=== PATIENT | female | born 1985 | race Caucasian/White ===

== ENCOUNTER → 2021-05-15 11:24 | Outpatient (BNVA) | payer OTHER, SELFPAY | PROVIDERS: PCP Internal Medicine; Visit Provider Nurse Practitioner Family | DX: G43.709 Chronic migraine without aura, not intractable, without status migrainosus (principal); G93.0 Cerebral cysts; H57.13 Ocular pain, bilateral | CPT/HCPCS: 99212 ==

== ENCOUNTER → 2021-07-26 14:27 | Outpatient (BNVA) | payer OTHER, SELFPAY | PROVIDERS: PCP Internal Medicine; Visit Provider Nurse Practitioner Family | DX: G47.19 Other hypersomnia (principal); R06.83 Snoring; H57.13 Ocular pain, bilateral; G93.0 Cerebral cysts; G43.709 Chronic migraine without aura, not intractable, without status migrainosus; R63.5 Abnormal weight gain; R53.83 Other fatigue; I10 Essential (primary) hypertension; M54.2 Cervicalgia; Z79.899 Other long term (current) drug therapy | CPT/HCPCS: 99212 ==

== ENCOUNTER 2021-08-20 11:39 | Emergency (ER) | payer OTHER, SELFPAY ==
--- NOTE | ~2021-08-20 | CT_ITS ---
EXAMINATION: CT ABDOMEN AND PELVIS WITH CONTRAST CLINICAL INFORMATION: Right upper and right lower quadrant pain COMPARISON: Previous CT of the abdomen and pelvis and pelvic ultrasound January 2020 TECHNIQUE: Multidetector volumetric images were obtained from the superior aspect of the liver through the pubic symphysis following administration 85 mL of Omnipaque 350 intravenous contrast. Sagittal and coronal reformatted images were obtained on the technologist's workstation. Oral contrast: Yes This CT examination was performed using dose optimization techniques as appropriate, variously including the following: *Automated exposure control *Adjustment of mA and/or kV according to patient size (this includes techniques or standardized protocols for targeted exams where dose is matched to indication/reason for exam; i.e. extremities or head) *Use of iterative reconstruction technique DLP: 868 mGy-cm FINDINGS: LUNG BASES: The visualized lung bases are unremarkable. LIVER, GALLBLADDER, AND BILIARY TREE: The liver is normal in size, shape, and attenuation. No focal hepatic lesion or biliary ductal dilatation is present. The gallbladder is unremarkable with no evidence of radiopaque gallstones, gallbladder wall thickening, or obvious pericholecystic inflammatory changes. PANCREAS: Unremarkable. SPLEEN: Unremarkable. ADRENAL GLANDS: Unremarkable. KIDNEYS AND URETERS: There are small bilateral nonobstructing renal stones. No hydronephrosis, ureteral dilatation or ureteral stone is seen. BLADDER: Unremarkable. GASTROINTESTINAL TRACT: The small and large bowel are unremarkable. The appendix is unremarkable. ABDOMINAL WALL: Small umbilical hernia containing fat. LYMPH NODES: Normal. VASCULAR: Unremarkable. PELVIC VISCERA: Unremarkable. OSSEOUS STRUCTURES: Unremarkable. CT/CT abdomen pelvis w con IMPRESSION: Small bilateral renal stones. No hydronephrosis, ureteral dilatation or ureteral stone seen. Fleischner guidelines were followed.
[2021-08-20 11:58] VITALS: BP 184/92; PULSE 72; RESP 18; TEMP 37.2; O2SAT 97; BMI 43.0
[2021-08-20 12:57] LABS: MANUAL DIFF FLAG NO
[2021-08-20 13:00] LABS: Basophils Percent Auto 0.1 % (0-2); Eosinophils Percent Auto 0.1 % (0-4); Hematocrit 42.6 % (37.0-47.0); Hemoglobin 13.9 g/dl (12.0-16.0); Imm Gran Abs Auto 0.27 X10*3/uL (0.00-0.03); Imm Gran Pct Auto 1.6 % (0.0-0.4); Lymphocytes Absolute Auto 3.8 X10*3/uL (1.2-4.9); Lymphocytes Percent Auto 22.8 % (20-40); Mean Corpuscular HGB Conc 32.6 g/dl (31.0-35.0); Mean Corpuscular Hemoglobin 29.3 pg (27.0-33.0); Mean Corpuscular Volume 89.7 fL (80.0-98.0); Mean Platelet Volume 9.3 fL (9.4-12.3); Monocytes Absolute Auto 1.4 X10*3/uL (0.1-1.2); Monocytes Percent Auto 8.3 % (2-11); Neutrophils Absolute Auto 11.1 x10*3/uL (2.0-8.3); Neutrophils Percent Auto 67.1 % (45-73); Platelet Count 381 X10*3/uL (160-400); Red Blood Count 4.75 X10*6/uL (4.20-5.50); Red Cell Distribution Width 13.5 % (11.0-16.0); White Blood Count 16.5 X10*3/uL (4.8-10.8)
[2021-08-20 13:21] LABS: Alanine Aminotransferase 25 U/L (0-31); Albumin Level 4.4 g/dL (3.5-5.0); Alkaline Phosphatase 65 U/L (39-117); Anion Gap 15 (12-20); Aspartate Amino Transferase 16 U/L (5-31); Bilirubin Total 0.4 mg/dL (0.0-1.0); Blood Urea Nitrogen 17 mg/dL (9-16); Calcium 9.7 mg/dL (8.4-10.2); Carbon Dioxide 25 mmol/L (22-29); Chloride 100 mmol/L (96-108); Creatinine Clr Calc Pharmacy 109.3; Estimated Glomerular Filt Rate > 60; Glucose Random 85 mg/dL (60-115); Potassium 4.8 mmol/L (3.3-5.1); Sodium 135 mmol/L (135-145); Total Protein 7.4 g/dL (6.5-8.0)
[2021-08-20 13:32] LABS: Appearance Urine CLEAR; Color Urine YELLOW; Glucose Urine UA NEG (NEG); Leukocyte Esterase Urine NEG (NEG); Nitrite Urine NEG (NEG); PH 6.5 (5.0-8.0); Urine Blood NEG (NEG); Urine Ketones NEG (NEG); Urine Protein NEG (NEG-TRACE)
[2021-08-20 13:36] LABS: UPreg QC Valid YES; Urine Pregnancy NEGATIVE (NEGATIVE)
--- NOTE | 2021-08-20 14:15 | ED.ABDPAIN ---
HPI - Abdominal Pain General Chief Complaint: Abdominal Pain Stated Complaint: Abd pain/back pain Time Seen by Provider: 08/20/21 14:13 Source: patient Mode of arrival: ambulatory Limitations: no limitations History of Present Illness MD elicited complaint: abdominal pain Pertinent past history: none Onset (ago): week(s) (3) Pain Consistency: intermittent Location: epigastric Severity: severe Quality: stabbing Radiation: RLQ and back Migration to: no migration Exacerbating factors: eating Relieving factors: nothing Associated symptoms: nausea Related Data Home Medications Medication Instructions Recorded Confirmed loratadine 10 mg tablet (Claritin) 10 mg PO DAILY 05/15/21 08/09/21 magnesium oxide 400 mg (241.3 mg 400 mg PO DAILY 07/26/21 08/09/21 magnesium) tablet riboflavin (vitamin B2) 100 mg 200 mg PO BID 07/26/21 08/09/21 tablet (Vitamin B-2) Previous Rx's Medication Instructions Recorded multivitamin 1 tab PO DAILY #1 tab 05/15/21 rizatriptan 10 mg tablet 10 mg PO Q2H PRN 30 Days #14 tab 05/15/21 topiramate 25 mg sprinkle capsule 50 mg PO BEDTIME 30 Days #60 cap 05/15/21 propranolol 60 mg capsule,24 60 mg PO BEDTIME 30 Days #30 cap 07/26/21 hr,extended release omeprazole 20 mg capsule,delayed 20 mg PO BID #30 cap 08/20/21 release ondansetron 4 mg disintegrating 4 mg PO Q8H PRN #20 tab 08/20/21 tablet Allergies Allergy/AdvReac Type Severity Reaction Status Date / Time No Known Allergies* Allergy no known Uncoded 08/09/21 14:08 allergies Review of Systems Review of Systems Constitutional : No Weight loss, No Fever, No Chills ENT/Mouth : No sore throat, No Rhinorrhea Eyes: No Swelling, No Redness Cardiovascular : No Chest Pain, No SOB, NoEdema Respiratory : No Cough, No Sputum, No Wheezing Gastrointestinal : Positive Nausea, Positive Vomiting, no Diarrhea, positive abdominal Pain, No Hematochezia, No Melena Genitourinary : No Dysuria, No Urinary Frequency, No Hematuria, No Urgency Musculoskeletal : No joint pain, No Myalgias, No Joint Swelling Skin : No Skin Lesions, No rash Neuro : No Weakness, No Numbness, No Dizziness, No Headache Psych : No Anxiety/Panic, No Depression Heme/Lymph: No Bruising, No Lymphadenopathy Endocrine : No Polyuria, No Polydipsia All other systems reviewed and are negative. [facility] Past Medical History Attestation statement: The following information was validated with the patient. Medical History (Updated 08/20/21 @ 16:21 by Latoya Brannon DO) Arachnoid cyst HTN (hypertension) Leukocytosis Migraine Surgical History Hx of tonsillectomy Family History Family History Mother Ovarian cancer Thyroid cancer Breast cancer Diabetes Social History Social History Household Members: Spouse Alcohol intake: current Alcohol intake frequency: holidays/special occasions only Patient Tobacco Use Status: Never used Tobacco Use of substances other than those prescribed or required for medical reasons: No Advance Directives: No Advance Directives Information Provided: No Patient : No Current occupational status: employed Physical Exam ED Vital Signs: Vital Signs - 24 hr 08/20/21 11:58 08/20/21 15:17 Temperature 98.9 F 98.7 F Pulse Rate 72 65 Respiratory Rate 18 19 Blood Pressure 184/92 H 174/91 H Pulse Oximetry 97 100 BMI result Body Mass Index 43.0 Appearance: Alert. Oriented X3. No acute distress. Eyes: Pupils equal, round and reactive to light. ENT: Pharynx normal. Neck: Normal inspection. Neck supple. CVS: Normal heart rate and rhythm. Pulses normal. Respiratory: No respiratory distress. Breath sounds normal. Abdomen: Soft and moderate ttp in RUQ, mild ttp in RLQ, + Villalta's sign Skin: Skin warm and dry. Normal skin color. Normal skin turgor. Extremities: No lower extremity edema. No calf ttp Neuro: Oriented X 3. No motor deficit. No sensory deficit. Course Course Course Narrative: hx of leukocytosis in the past, kidneys/liver/pancreas normal CT scan no signs of acute infection with 3 weeks of symptoms possible PUD has mildly elevated BP hx of HTN in the past can follow up with her PCP MDM - Abdominal Pain MDM Narrative Medical decision making narrative: 36 yo female with PMH of migraines, leukocytosis here with c/o RUQ and RLQ pain x 3 weeks radiating to the back with n/v - at this time worse with food. Denies daily NSAID or ETOH use. Will obtain labs, CT scan to evaluate GB, R kidney/appendix. IVF, IV medications for pain control. Dispo per results and findings. Lab Data Result diagrams: 08/20/21 12:53 08/20/21 12:53 Labs: Lab Results 08/20/21 08/20/21 08/20/21 Range/Units 12:53 12:53 13:18 WBC 16.5 H (4.8-10.8) X10*3/uL RBC 4.75 (4.20-5.50) X10*6/uL Hgb 13.9 (12.0-16.0) g/dl Hct 42.6 (37.0-47.0) % MCV 89.7 (80.0-98.0) fL MCH 29.3 (27.0-33.0) pg MCHC 32.6 (31.0-35.0) g/dl RDW 13.5 (11.0-16.0) % Plt Count 381 (160-400) X10*3/uL MPV 9.3 L (9.4-12.3) fL Immature Gran % (Auto) 1.6 H (0.0-0.4) % Neut % (Auto) 67.1 (45-73) % Lymph % (Auto) 22.8 (20-40) % [place] % (Auto) 8.3 (2-11) % Eos % (Auto) 0.1 (0-4) % Baso % (Auto) 0.1 (0-2) % Lymph # (Auto) 3.8 (1.2-4.9) X10*3/uL Johnston # (Auto) 1.4 H (0.1-1.2) X10*3/uL Eos # (Auto) 0.0 (0.0-0.4) X10*3/uL Baso # (Auto) 0.0 (0.0-0.2) X10*3/uL Abs Immat Gran (auto) 0.27 H (0.00-0.03) X10*3/uL Absolute Neuts (auto) 11.1 H (2.0-8.3) x10*3/uL Absolute Nucleated RBC 0.000 (0.0-0.012) X10*3/uL Nucleated RBC % (auto) 0.0 (0.0-0.2) /100WBC Sodium 135 (135-145) mmol/L Potassium 4.8 (3.3-5.1) mmol/L Chloride 100 (96-108) mmol/L Carbon Dioxide 25 (22-29) mmol/L Anion Gap 15 (12-20) BUN 17 H (9-16) mg/dL Creatinine 0.74 (0.5-1.4) mg/dL Estim Creat Clear Calc 109.3 Estimated GFR > 60 Random Glucose 85 (60-115) mg/dL Lactic Acid (0.5-2.0) mmol/L Calcium 9.7 (8.4-10.2) mg/dL Magnesium 2.1 (1.6-2.6) mg/dL Total Bilirubin 0.4 (0.0-1.0) mg/dL AST 16 (5-31) U/L ALT 25 (0-31) U/L Alkaline Phosphatase 65 (39-117) U/L Total Protein 7.4 (6.5-8.0) g/dL Albumin 4.4 (3.5-5.0) g/dL Lipase 18 (8-78) U/L Urine Color YELLOW Urine Appearance CLEAR Urine pH 6.5 (5.0-8.0) Ur Specific [place] 1.010 (1.005-1.025) Urine Protein NEG (NEG-TRACE) MG/DL Urine Glucose (UA) NEG (NEG) MG/DL Urine Ketones NEG (NEG) MG/DL Urine Blood NEG (NEG) Urine Nitrite NEG (NEG) Ur Leukocyte Esterase NEG (NEG) Urine Test (NEGATIVE) 08/20/21 08/20/21 Range/Units 13:18 14:45 WBC (4.8-10.8) X10*3/uL RBC (4.20-5.50) X10*6/uL Hgb (12.0-16.0) g/dl Hct (37.0-47.0) % MCV (80.0-98.0) fL MCH (27.0-33.0) pg MCHC (31.0-35.0) g/dl RDW (11.0-16.0) % Plt Count (160-400) X10*3/uL MPV (9.4-12.3) fL Immature Gran % (Auto) (0.0-0.4) % Neut % (Auto) (45-73) % Lymph % (Auto) (20-40) % Johnston % (Auto) (2-11) % Eos % (Auto) (0-4) % Baso % (Auto) (0-2) % Lymph # (Auto) (1.2-4.9) X10*3/uL [place] # (Auto) (0.1-1.2) X10*3/uL Eos # (Auto) (0.0-0.4) X10*3/uL Baso # (Auto) (0.0-0.2) X10*3/uL Abs Immat Gran (auto) (0.00-0.03) X10*3/uL Absolute Neuts (auto) (2.0-8.3) x10*3/uL Absolute Nucleated RBC (0.0-0.012) X10*3/uL Nucleated RBC % (auto) (0.0-0.2) /100WBC Sodium (135-145) mmol/L Potassium (3.3-5.1) mmol/L Chloride (96-108) mmol/L Carbon Dioxide (22-29) mmol/L Anion Gap (12-20) BUN (9-16) mg/dL Creatinine (0.5-1.4) mg/dL Estim Creat Clear Calc Estimated GFR Random Glucose (60-115) mg/dL Lactic Acid 1.8 (0.5-2.0) mmol/L Calcium (8.4-10.2) mg/dL Magnesium (1.6-2.6) mg/dL Total Bilirubin (0.0-1.0) mg/dL AST (5-31) U/L ALT (0-31) U/L Alkaline Phosphatase (39-117) U/L Total Protein (6.5-8.0) g/dL Albumin (3.5-5.0) g/dL Lipase (8-78) U/L Urine Color Urine Appearance Urine pH (5.0-8.0) Ur Specific [place] (1.005-1.025) Urine Protein (NEG-TRACE) MG/DL Urine Glucose (UA) (NEG) MG/DL Urine Ketones (NEG) MG/DL Urine Blood (NEG) Urine Nitrite (NEG) Ur Leukocyte Esterase (NEG) Urine Test NEGATIVE (NEGATIVE) Discharge Plan Discharge Clinical Impression: Abdominal pain Qualifiers: Abdominal location: right upper quadrant Qualified Code(s): R10.11 - Right upper quadrant pain Leukocytosis Qualifiers: Leukocytosis type: unspecified Qualified Code(s): D72.829 - Elevated white blood cell count, unspecified HTN (hypertension) Qualifiers: Hypertension type: unspecified Qualified Code(s): I10 - Essential (primary) hypertension Patient Disposition: Home, Self-Care Instructions: Diet for Stomach Ulcers and Gastritis (ED), Abdominal Pain (ED), Hypertension (ED) Additional Instructions: return to ED for any worsening symptoms or concerns. YOUR DOCTOR NEEDS TO RECHECK YOUR BLOOD PRESSURE THIS WEEK WELL. LUNG BASES: The visualized lung bases are unremarkable.? LIVER, GALLBLADDER, AND BILIARY TREE: The liver is normal in size, shape, and attenuation. No focal hepatic lesion or biliary ductal dilatation is present. The gallbladder is unremarkable with no evidence of radiopaque gallstones, gallbladder wall thickening, or obvious pericholecystic inflammatory changes.? PANCREAS: Unremarkable.? SPLEEN: Unremarkable.? ADRENAL GLANDS: Unremarkable.? KIDNEYS AND URETERS: There are small bilateral nonobstructing renal stones. No hydronephrosis, ureteral dilatation or ureteral stone is seen. INCIDENTAL NOT CAUSE OF TODAY'S PAIN BLADDER: Unremarkable.? GASTROINTESTINAL TRACT: The small and large bowel are unremarkable. The appendix is unremarkable.? ABDOMINAL WALL: Small umbilical hernia containing fat. INCIDENTAL NOT CAUSE OF TODAY'S PAIN LYMPH NODES: Normal. VASCULAR: Unremarkable. PELVIC VISCERA: Unremarkable.? OSSEOUS STRUCTURES: Unremarkable.? CT/CT abdomen pelvis w con IMPRESSION: Small bilateral renal stones. No hydronephrosis, ureteral dilatation or ureteral stone seen. ? Fleischner guidelines were followed. Prescriptions: New omeprazole 20 mg capsule,delayed release(DR/EC) 20 mg PO BID Qty: 30 0RF Rx Instructions: twice a day for 10 days then daily for 7 days ondansetron 4 mg tablet,disintegrating 4 mg PO Q8H PRN (Reason: nausea and vomiting) Qty: 20 0RF No Action loratadine [Claritin] 10 mg tablet 10 mg PO DAILY 0RF multivitamin Tablet 1 tab PO DAILY Qty: 1 0RF topiramate 25 mg capsule, sprinkle 50 mg PO BEDTIME 30 Days Qty: 60 3RF rizatriptan 10 mg tablet 10 mg PO Q2H PRN (Reason: migraine headache) 30 Days Qty: 14 3RF Rx Instructions: 1 tab at onset of migraine, may repeat in 2 hours (max 2 tabs per day/4 tabs per week) riboflavin (vitamin B2) [Vitamin B-2] 100 mg tablet 200 mg PO BID 0RF magnesium oxide 400 mg (241.3 mg magnesium) tablet 400 mg PO DAILY 0RF propranolol 60 mg capsule,extended release 24 hr 60 mg PO BEDTIME 30 Days Qty: 30 3RF Referrals: Luis Miguel Mullins DO, MD [Primary Care Provider] - (possible need for ultrasound or h. pylori testing) Stand Alone Forms: Work/School Release
[2021-08-20 14:41] LABS: Lipase 18 U/L (8-78); Magnesium 2.1 mg/dL (1.6-2.6)
[2021-08-20 15:00] LABS: Lactic Acid 1.8 mmol/L (0.5-2.0)
[2021-08-20] MEDS: iohexoL 350 MG/ML 100 ML INFUS..BTL IV (15:01)
[2021-08-20 15:17] VITALS: BP 174/91; PULSE 65; RESP 19; TEMP 37.1; O2SAT 100
[2021-08-20] MEDS: 0.9 % Sodium Chloride 1,000 ML 999 ML IV (15:23)
[2021-08-20] MEDS: Ketorolac Tromethamine 15 MG/ML VIAL IVPUSH (15:25)
[2021-08-20] MEDS: ondansetron HCL 4 MG/2 ML VIAL IVPUSH (15:25)
[2021-08-20] MEDS: Famotidine/PF 20 MG/2 ML VIAL IVPUSH (15:26)
[2021-08-20 16:27] VITALS: BP 148/82
[2021-08-20 16:51] VITALS: BP 148/82; PULSE 59; RESP 18; O2SAT 99
[2021-08-20] MEDS: Lidocaine HCl Viscous 2 % 15 ML SOLUTION MUCOUS MEM (16:52)
[2021-08-20] MEDS: Magnesium Hydrox/Alum Hydrox 30 ML ORAL.SUSP 15 ML PO (16:53)
== END 2021-08-20 17:05 | disposition home or self-care (01) ==
PROVIDERS: Emergency Provider Emergency Medicine; PCP Internal Medicine
DX: R10.11 Right upper quadrant pain (principal); R10.31 Right lower quadrant pain; D72.829 Elevated white blood cell count, unspecified; I10 Essential (primary) hypertension; M54.50 Low back pain, unspecified; Z79.899 Other long term (current) drug therapy
CPT/HCPCS: 36415; 74177; 80053; 81003; 81025; 83605; 83690; 83735; 85025; 87040; 96361; 96374; 96375; 99284; J1885; J2405; Q9967

== ENCOUNTER 2021-12-30 08:50 | Outpatient (REF) | payer OTHER, SELFPAY ==
[2021-12-30 09:24] LABS: COVID-19 Test Negative (Negative)
== END 2021-12-30 08:51 | disposition home or self-care (01) ==
LOC: HO.LAB 08:50
PROVIDERS: Visit Provider Internal Medicine
DX: Z20.822 Contact with and (suspected) exposure to COVID-19 (principal)
CPT/HCPCS: 87635; C9803

== ENCOUNTER 2022-08-07 12:27 | Outpatient (REF) | payer OTHER, SELFPAY ==
--- NOTE | ~2022-08-07 | XR_ITS ---
EXAMINATION: XR FOOT, RIGHT CLINICAL INFORMATION: Trauma. Fall down stairs. Rule out fracture. COMPARISON: None available. TECHNIQUE: AP, lateral, and oblique views of the right foot. FINDINGS: The bones and soft tissues are normal. No fracture. Alignment is anatomic. Joint spaces are maintained. XR/XR foot RT min 3V IMPRESSION: Normal right foot.
== END 2022-08-07 12:28 | disposition home or self-care (01) ==
LOC: HO.XRAY 12:27
PROVIDERS: PCP Internal Medicine; Visit Provider Hospitalist
DX: M79.671 Pain in right foot (principal)
CPT/HCPCS: 73630

== ENCOUNTER 2023-06-29 08:54 | Outpatient (AMB) | payer OTHER, SELFPAY ==
--- NOTE | 2023-06-29 08:53 | MHC.OFFWIV ---
Intake Vital Signs 06/29/23 08:58 Height 5 ft Weight 225 lb BMI 43.9 BP 148/76 H Blood Pressure Location Lt brachial Position Left Lateral Pulse 96 Pulse Source Pulse Oximeter Temp 99 F Temp Source Temporal Artery Scan Pulse Oximetry (%) 98 Oxygen Delivery Method Room Air Intake Visit Reasons: sore throat Patient Tobacco Use Status: Never used Tobacco Allergies No Known Allergies* Allergy (Unknown, Uncoded 06/29/23 08:56) no known allergies Medication List - Last Reconciled 06/29/23 by TRAV Mari-BC loratadine (Claritin) 10 mg PO DAILY magnesium oxide 400 mg PO DAILY multivitamin 1 tab PO DAILY rizatriptan 10 mg PO Q2H PRN 30 days HPI HPI Comments History of Present Illness Details A few days ago throat started to feel scratchy. + ear pressure and nasal congestion. Feeling tired. + painful swallowing. Feels week. + dry cough. + PND. Home COVID test negative this AM. Voice is hoarse. Used dayquil w/o relief. Not UTD on flu vaccine. [facility] Medical History (Updated 06/29/23 @ 09:10 by TRAV Mari-DEVON) HTN (hypertension) Migraine Leukocytosis Arachnoid cyst Surgical History Hx of tonsillectomy Family History Mother Ovarian cancer Thyroid cancer Breast cancer Diabetes Social History Household Members: Spouse Alcohol intake: current Alcohol intake frequency: holidays/special occasions only Patient Tobacco Use Status: Never used Tobacco Current occupational status: employed Review of Systems Const All systems reviewed & are unremarkable except as noted in HPI and below Physical Exam Vital Signs: Last Vital Signs Temp 99 F 06/29/23 08:58 Pulse 96 06/29/23 08:58 BP 148/76 H 06/29/23 08:58 Pulse Ox 98 06/29/23 08:58 Oxygen Delivery Method Room Air 06/29/23 08:58 BMI result Body Mass Index 43.9 Const Other: Awake alert NAD, mildly ill-appearing Sclera and conjunctiva clear bilat Nares with clear discharge bilat, turbinates erythematous, reports a pressure with sinus palpation frontal and maxillary TM intact and clear bilat MMM, pharynx WNL RRR LS CTAB, dry hacking cough noted during exam Assessment & Plan Assessment & Plan (1) Flu-like symptoms: Code(s): R68.89 - Other general symptoms and signs Plan: Viral swab negative. Therefore decision was made to send an antibiotic. Augmentin sent to pharmacy. Advised to take as directed with food. (2) HTN (hypertension): Comment: BP elevated today on exam. Patient reports this has been a problem in the past. Advised that she follow up with her primary care about this. It certainly could be a reactive blood pressure given that she took DayQuil prior to arrival. However her chart does indicate a history of hypertension. Code(s): I10 - Essential (primary) hypertension Plan This note is constructed using voice recognition software. While every effort has been made to ensure accuracy in obstetrician and gynaecologist, still errors may have been included Sometimes, these errors may affect the content or meaning of the given sentence . Total time spent caring for the patient today was 30 minutes. This includes time spent before the visit reviewing the chart, time spent during the visit, and time spent after the visit on documentation Orders: Orders SARS-CoV2/FLU/RSV Today R68.89 - Other general symptoms and signs Medications: New benzonatate 100 mg PO TID 10 days PRN 30 caps 1RF cough amoxicillin-pot clavulanate 500-125 mg 1 tab PO BID 14 tabs 0RF 7 days Coding Level of Care Code Est Pt Level 4 (07247) Diagnoses Flu-like symptoms R68.89 HTN (hypertension) I10
[2023-06-29 08:58] VITALS: BP 148/76; PULSE 96; TEMP 37.2; O2SAT 98; BMI 43.9
== END 2023-06-29 09:09 | disposition home or self-care (01) ==
LOC: HO.HMGWIW 08:54
PROVIDERS: PCP Internal Medicine
DX: R68.89 Other general symptoms and signs (principal); I10 Essential (primary) hypertension
CPT/HCPCS: 99214

== ENCOUNTER 2023-06-29 14:27 | Outpatient (REF) | payer OTHER, SELFPAY ==
[2023-06-29 16:05] LABS: Influenza A PCR NEGATIVE (Negative); Influenza B PCR NEGATIVE (Negative); Resp Syncy Virus RNA Qual PCR NEGATIVE (Negative); SARS COV2 PCR INHOUSE NEGATIVE (Negative)
== END 2023-06-29 14:28 | disposition home or self-care (01) ==
LOC: HO.LNP 14:27
PROVIDERS: Visit Provider Nurse Practitioner Family
DX: R68.89 Other general symptoms and signs (principal); Z11.52 Encounter for screening for COVID-19; Z20.828 Contact with and (suspected) exposure to other viral communicable diseases
CPT/HCPCS: 0241U